=== PATIENT | male | born 1995 | race African-American/Black ===

== ENCOUNTER 2023-05-16 14:02 | Outpatient (CLI) | payer OTHER ==
--- NOTE | 2023-05-16 14:50 | Sleep Patient Instructions ---
Sleep Center Visit Summary - Patient Visit Information Reason for Visit: Initial consult for evaluation of sleep disordered breathing and other sleep issues. - Patient Instructions Instructions Attached: Sleep Study Home Monitor, Sleep Study Additional Instructions: You will be completing a sleep study, either an in-lab polysomnography (PSG) or home sleep study (HST). You will follow-up in the sleep care office after the sleep study is completed to hear the results and talk about therapy, if needed. You will be called by our office staff to schedule this appointment, but you may contact us with any questions. - Clinic Information Contact: [facility] [address] [place] [id number] [email or web address] T: [phone]
--- NOTE | 2023-05-16 14:52 | SLEEP CARE CONSULTATION ---
Information from patient questionnaire entered by Doc Archuleta. I have reviewed and concur with the information entered by Doc Archuleta. This document represents the service I personally performed and the decisions made by me, Elle Mcgill ARNP. History of Present Illness Service Date and Time: 05/16/2023 1402 Reason for Visit: New patient Chief Complaint: reports: Insomnia, Unrefreshed sleep, Snoring, Excessive daytime sleepiness, Frequent awakenings at night Date of Onset: 2YRS Usual bedtime: IT CHANGES Time it takes to fall asleep: 2-3HRS Snores at night: Yes Observed to quit breathing while asleep: Yes Number of times waking at night: 1-2 Reasons for waking at night: reports: Gasping for air (usually when falling asleep on couch when it happens), Pain, Bathroom, Other (UNKNOWN, BREATHING thru mouth at night). denies: Choking Toss, Turn, or Twitch while sleeping: Yes Recalls having dreams: Yes Usually gets out of bed at: varies with work schedule Feels refreshed in the morning: No Morning headache: Yes (1-2 times a week, resolves quickly but sometimes lasts longer; hx migraines) Sleepy or fatigued during the day: Yes Ever fallen asleep while driving: Yes (drowsy driving, no accidents but close calls) Takes day naps: Yes (unintentional usually, sometimes at work) Dreams during day naps: Yes Prior sleep studies: No Additional HPI information: I had the pleasure of seeing DANDRE FISHMAN today regarding the possibility of him having a sleep disorder. His current complaints are insomnia, excessive daytime sleepiness, frequent night awakenings, snoring and unrefreshed sleep. He has been told by his that he is snoring constantly at night and she cannot get sleep. He is falling asleep at work. He has a lot of bloody noses, at least one every other day. He has had the nose cauterized and it helped for about a year or so. But it is returning. He has high blood pressure too. He states that every two weeks his schedule at work changes. His sleep and wake time is variable. He tries to get 8 hours but is not always successful in getting that much sleep. He states he normally can take hours to fall asleep. - Parasomnia Symptoms Ever been unable to move upon waking from sleep: Yes (not often) Walks in sleep: No Talks in sleep: No Ever acted out dreams in sleep: No Ever felt weak in the knees when startled or emotional: Yes Bothered by creepy, crawly, restless sensations in legs: No Problems with memory or concentration: Yes (concentration mostly) Subjective Initial [place] Sleepiness Scale score: 21 (05/16/23) Past Medical History Past Medical History: reports: Hypertension, Other (anger managment counseling) Social History The patient's occupation is a AM. Patient is and lives in . Have you smoked in the past 12 months: Yes (vaping) Years of smokin Alcohol use: No Caffeine use: Yes Caffeine amount and frequency: rare occasion Family History Family history of sleep disordered breathing: Yes Family Hx Sleep Apnea: Mother: Snoring, Father: Snoring, Sleep apnea - Treated, Grandparent: Snoring, Sleep apnea - Treated Allergies and Home Medications Known drug allergies: No Drug allergies reviewed: Yes Home medication list reviewed: Yes Allergy and home medication list: Home Medications Medication Instructions Recorded Confirmed Last Taken Type Acetaminophen [Tylenol] See Rx Instructions .ROUTE .COMPLEX 05/16/23 05/16/23 Unknown History Lisinopril [Zestril] See Rx Instructions .ROUTE .COMPLEX 05/16/23 05/16/23 Unknown History Review of Systems Weight gain over past 5 years: 30 Cardiovascular: reports: high blood pressure Gastrointestinal: reports: heartburn (occasional, uses Tums) Neurological: reports: headaches Psychiatric: denies: anxiety, depression Ear/Nose/Throat: reports: nasal congestion, sinus problems, nose bleeds, dry mouth/throat. denies: tonsillectomy Musculoskeletal: reports: neck pain, back pain Immunologic: denies: allergies to food or environment Physical Exam Vital signs obtained and entered by: DOC Zuniga MA Blood Pressure: 140/90 (LEFT ARM) Cuff size: long Heart Rate: 88 O2 Saturation: 98 Height: 5 ft 11 in Weight: 251 lb 9.6 oz Body Mass Index: 35.1 BMI Classification: Obese Neck circumference: 17.75 Mouth and throat: narrow oropharynx Soft palate: long Hard palate: arched Uvula: normal Uvula visualization: 0% Mallampati Class IV Tongue: enlarged in size with teeth dinh on lateral edges Tonsils: 3+/kissing Neck: normal w/o lymphadenopathy or thyromegaly Heart: regular rate and rhythm Lungs: clear bilaterally Impression and Plan 1. Suspected Obstructive Sleep Apnea-Hypopnea Syndrome, as suggested by a history of loud and irregular snoring, observed cessation of breath while asleep, gasping or choking in sleep, morning headache, frequent awakening during the night, unrefreshed sleep, cognitive impairment, and excessive daytime sleepiness. Narrow oropharynx and obesity are common predisposing factors for obstructive sleep apnea-hypopnea syndrome. I recommend proceeding to polysomnography to confirm the diagnosis and to assess severity. If the patient has significant sleep disordered breathing, a manual CPAP titration study will also be performed to find the optimal treatment pressure. I informed the patient of what the sleep studies involve and after some discussion, obtained agreement to proceed. The pathophysiology of obstructive sleep apnea-hypopnea syndrome was discussed with the patient and health risks of cardiovascular and cerebrovascular disease if not treated. Risks of drowsy driving discussed in detail and patient advised to avoid long distance driving and to wire puller at the first sign of drowsiness. Patient agreed to plan. * Schedule polysomnography. * Avoid long distance driving or driving when feeling sleepy. * Avoid alcohol, sedative and muscle relaxant around bedtime. * Attempt to lose weight. * Review instructions provided by trained office staff on how to prepare for the sleep study. * Return for follow-up after sleep study completed. Counseling Topics: Weight loss health impact Plan: PSG/HST Visit Type: In Office Time Spent with Patient (minutes): 30 Provider Statement: I spent 100% of the Face to Face Visit with the patient with greater than 50% spent counseling the patient and coordination of care.
[2023-05-16 14:53] VITALS: BP 140/90; O2SAT 98
== END 2023-05-16 14:03 | disposition home or self-care (01) ==
LOC: SC 14:02
PROVIDERS: ATTEND Nurse Practitioner Family
DX: R06.83 Snoring (principal); G47.8 Other sleep disorders; R06.81 Apnea, not elsewhere classified; R51.9 Headache, unspecified; G47.10 Hypersomnia, unspecified; R53.83 Other fatigue; I10 Essential (primary) hypertension; E66.9 Obesity, unspecified; Z68.35 Body mass index [BMI] 35.0-35.9, adult; F17.290 Nicotine dependence, other tobacco product, uncomplicated
CPT/HCPCS: 99203; 99212

== ENCOUNTER 2023-06-07 12:16 | Outpatient (CLI) | payer OTHER | END 2023-06-07 12:17 | disposition home or self-care (01) | LOC: SC 12:16 | PROVIDERS: ATTEND Nurse Practitioner Family | DX: G47.33 Obstructive sleep apnea (adult) (pediatric) (principal); R09.02 Hypoxemia; R00.0 Tachycardia, unspecified | CPT/HCPCS: 95806 ==

== ENCOUNTER 2023-07-05 11:07 | Outpatient (CLI) | payer OTHER ==
--- NOTE | 2023-07-05 11:42 | Sleep Patient Instructions ---
Sleep Center Visit Summary - Patient Visit Information Reason for Visit: Sleep study follow up - Patient Instructions Instructions Attached: CPAP Additional Instructions: You are being started on CPAP therapy with pressure setting at 4-15 cmH2O. You w ill need to call the sleep care office to set up your follow up once you have your APAP machine and we will schedule a visit to check compliance and response to therapy at that time. You may call the office with any concerns about pressure feeling too low or too much for adjustment, if needed. You should contact DME supplier for any questions or concerns about mask or equipment. Please call office to schedule a follow up appointment in the sleep care office one month after obtaining new device. - Clinic Information Contact: [facility] [address] [place] [address] [email or web address] T: [phone]
--- NOTE | 2023-07-05 11:45 | SLEEP CARE CONSULTATION ---
Information from patient questionnaire entered by Mattie Archuleta. I have reviewed and concur with the information entered by Mattie Archuleta. This document represents the service I personally performed and the decisions made by me, Elle Mcgill ARNP. History of Present Illness Service Date and Time: 07/05/2023 110 Initial [place] Sleepiness Scale score: 21 (05/16/23) Current [place] Sleepiness Scale score: 22 (07/05/23) Additional HPI information: DANDRE FISHMAN returns for follow up and results of the recently performed home sleep study. The sleep study showed mild obstructive sleep apnea with an average AHI of 6.9 and srinivas oxygen saturation of 80%. I explained the pathophysiology behind obstructive sleep apnea. We then spent quite a bit of time discussing different treatment options. For mild obstructive sleep apnea, surgery and oral appliance are alternatives to nasal CPAP therapy but in moderate or severe cases, nasal CPAP is the most effective and reliable treatment. I reviewed the impact of weight changes on sleep apnea and strongly recommended losing weight. After some discussion, the patient opted to go with the nasal CPAP therapy. Nasal autoCPAP set at 4-15 cmH20 will be ordered with rationale explained. A manual titration study will be ordered if unable to find optimal pressure with office adjustments. I explained how CPAP machine works and what to expect when using the machine. Using CPAP every night in order to get used to it was emphasized. Patient advised to put CPAP mask on before getting into bed so as not to fall asleep without CPAP. To assist acclimation to CPAP use, it could also be used for a short time during day while reading or watching TV. The patient was instructed to call the CPAP supplier to discuss any mechanical problem that may occur. If the mask given is uncomfortable or is difficult to keep on through the night even with adjustment, contact the CPAP supplier as many will replace with another mask style if notified before 30 days. If snoring or perceives is not getting enough air or too much air from the machine, notify this office. Patient does not drink alcohol. Patient was cautioned about risks of drowsy driving until sleepiness symptoms resolve. Sleep Study - Results Type of Sleep Study: Home sleep study (COMPLETED 06/07/23) Prior sleep studies: No Polysomnography/Home Sleep Study results: Physician Impression: The quality of the study is good. The length of the study is adequate (> 240 minutes). Please also see the tabulated and graphic data. 1. Obstructive Sleep Apnea-Hypopnea (ICD-10 G47.33), mild, with an AHI of 6.9/hr and srinivas SaO2 of 80%. During the study, the patient had 9 apneas (9 obstructive, 0 central, 0 mixed) and 40 hypopneas. The longest episode lasted 92.5 seconds. The respiratory events occurred independently of sleep stage and body position (supine AHI was 7.2 and non-supine, 6.28). 2. Hypoxemia (ICD-10 R09.02), mild, with the lowest oxygen saturation of 80 % and 7.4 minutes with SaO2 under 90%. Baseline oxygen saturation was normal (Average oxygen saturation was 94%). 3. Tachycardia, with maximum recorded heart rate of 127 beats per minute. Allergies and Home Medications Known drug allergies: No Drug allergies reviewed: Yes Home medication list reviewed: Yes (no changes) Allergy and home medication list: Allergies No Known Drug Allergies Allergy (Verified 07/04/23 09:59) Review of Systems Review of systems same as previous: Yes (NO CHANGE) Physical Exam Vital signs obtained and entered by: MATTIE Zungia MA Blood Pressure: 165/111 (RIGHT ARM) Cuff size: long Heart Rate: 80 O2 Saturation: 97 Height: 5 ft 11 in Weight: 249 lb 12.8 oz Body Mass Index: 34.8 BMI Classification: Obese Impression and Plan 1. Obstructive Sleep Apnea-Hypopnea Syndrome, mild, with lowest oxygen saturation of 80%. Obviously this is the cause of the patients symptoms of unrefreshed sleep, and excessive daytime sleepiness. Positive pressure therapy could benefit hypertension. As mentioned above, the patient will be started on nasal autoCPAP therapy with pressure set at 4-15 cmH2O. Compliance guidelines also reviewed. A copy of compliance guidelines will be given for reference at check out. 2. Hypoxemia, mild, with a srinivas oxygen saturation of 80% and 7.4 minutes spent under 90%. The baseline oxygen saturation was normal with an average oxygen saturation of 94%. 3. Obesity, unspecified. Currently patients BMI is 34.8. Obesity increases the risk of apnea, CPAP pressure requirements and overall health risks especially cardiovascular and diabetes. Thus patient is advised to lose weight. * Nasal auto CPAP therapy, pressure at 4-15 cm H2O. * Attempt to lose weight. * Avoid alcohol consumption near bedtime. * Avoid supine sleep until using CPAP. * The patient is again cautioned about driving until sleepiness completely resolves. * Return one month after CPAP obtained. I will assess response to therapy and compliance at that time. Counseling Topics: Weight loss health impact Prescriptions: Auto CPAP Plan: Compliance visit Visit Type: In Office Time Spent with Patient (minutes): 20 Provider Statement: I spent 100% of the Face to Face Visit with the patient with greater than 50% spent counseling the patient and coordination of care.
[2023-07-05 11:54] VITALS: BP 165/111; O2SAT 97
== END 2023-07-05 11:08 | disposition home or self-care (01) ==
LOC: SC 11:07
PROVIDERS: ATTEND Nurse Practitioner Family
DX: G47.33 Obstructive sleep apnea (adult) (pediatric) (principal); R09.02 Hypoxemia; E66.9 Obesity, unspecified; Z68.34 Body mass index [BMI] 34.0-34.9, adult
CPT/HCPCS: 99212; 99213

== ENCOUNTER 2023-09-20 08:51 | Outpatient (CLI) | payer OTHER ==
--- NOTE | 2023-09-20 09:26 | Sleep Patient Instructions ---
Sleep Center Visit Summary - Patient Visit Information Reason for Visit: First compliance follow-up - Patient Instructions Additional Instructions: You were here for follow up of CPAP therapy. You will be continued on CPAP therapy with pressure at 9-12 cmH2O. Please let us know if the pressure change is uncomfortable and we can make further adjustments of the pressure. You should follow up with sleep care in 1-2 months. You may contact us sooner for any questions or concerns. - Clinic Information Contact: [facility] [address] [place] [address] [email or web address] T: [phone]
--- NOTE | 2023-09-20 09:35 | SLEEP CARE CONSULTATION ---
Information from patient questionnaire entered by Mattie Archuleta. I have reviewed and concur with the information entered by Mattie Archuleta. This document represents the service I personally performed and the decisions made by me, Elle Mcgill ARNP. History of Present Illness Service Date and Time: 09/20/2023 0851 Previous diagnosis: Mild, Obstructive Sleep Apnea-Hypopnea Syndrome AHI: 6.9 (06/07/23) Reason for follow up: first compliance Equipment type: CPAP (RESMED Airsense 10, s/u 06/2023) Equipment obtained from: Other ([facility]; getting supplies) Mask style: Nasal Mask brand: [employer] ([employer]iryam) Backup mask available: Yes (has full face mask he got initially) Last cushion change: just got nasal mask Prior sleep studies: No Type of Sleep Study: Home sleep study (COMPLETED 06/07/23) HPI additional information: DANDRE FISHMAN was diagnosed to have mild, AHI 6.9, obstructive sleep apnea- hypopnea syndrome and returned today for CPAP therapy first compliance follow- up. Sleep Study - Results Type of Sleep Study: Home sleep study (COMPLETED 06/07/23) Prior sleep studies: No CPAP Compliance Data - Data Reviewed with Patient Average duration of nightly device use: 5 HRS 26 MINS Compliance rate %: 70 (08/05/23-09/03/23; 25/ days used; last 30 days 77%) Current pressure setting (cmH2O): 4-15 (median 9.2, avg 12.5, max 13.4) Average residual AHI: 0.6 Central apnea: 0.4 Obstructive apnea: 0.1 Hypopnea: 0 Average large leak: 2 L/min Subjective Missed days of use due to: reports: travel Patient concerns: reports: mask leak noise, nasal congestion (when takes off mask in morning), dry mouth, nose, throat (dry mouth), other (headache, in morning). denies: aerophagia, mask discomfort, air blowing in eyes, condensation in mask/hose, epistaxis Observed to snore while using device: No Current pressure setting perceived as: comfortable On therapy, patient: reports: sleeping better, awakening more refreshed, being more awake and alert during the day, more rested overall. denies: drowsiness while driving Initial [place] Sleepiness Scale score: 21 (05/16/23) Current [place] Sleepiness Scale score: 8 (09/20/23) Allergies and Home Medications Known drug allergies: No Drug allergies reviewed: Yes Home medication list reviewed: Yes (high blood pressure medication) Allergy and home medication list: Allergies No Known Drug Allergies Allergy (Verified 09/18/23 10:53) Review of Systems Review of systems same as previous: Yes (NO CHANGE) Physical Exam Vital signs obtained and entered by: MATTIE Zuniga MA Blood Pressure: 168/102 (LEFT ARM) Cuff size: regular Heart Rate: 79 O2 Saturation: 97 Height: 5 ft 11 in Weight: 253 lb 9.6 oz Body Mass Index: 35.4 BMI Classification: Obese Impression and Plan 1. Obstructive Sleep Apnea-Hypopnea Syndrome, mild, with good treatment compliance and good apnea control. On CPAP therapy, the patient has better sleep quality and is more rested overall. He has significant improvement of his sleep apnea and feels the pressure is comfortable. The patients pressure will be ch anged to autoCPAP 9-12 cmH20 to reflect pressure being used. Patient advised to contact me if pressure change is uncomfortable so that it can be adjusted. Goals for apnea control discussed. He does complain of some nasal congestion and oral dryness. We will increase his humidity by one increment to see if this will help resolve the dryness. I also discussed with him using a nasal moisturizer as needed to reduce nasal congestion. Patient's apnea severity and rationale for treatment to reduce apnea, improve sleep quality and reduce cardiovascular and cerebrovascular events was reviewed. I also reviewed the benefit of consistent device use of CPAP for hypertension. 2. Obesity, unspecified. Currently patients BMI is 35.4. Obesity increases the risk of apnea, CPAP pressure requirements and overall health risks especially cardiovascular and diabetes. Thus patient is advised to lose weight. 3. Elevated blood pressure reading in patient with hypertension. His blood pressure was elevated today at 168/102. He says he was started on blood pressure medications but has not had a followup with his primary provider. I advised him to make a follow up appointment as they may need to adjust his dosages/medication. He had no complaints of chest pain, shortness of breath, headaches or dizziness. He voiced understanding of instructions. * Change auto CPAP pressure to 9-12 cmH2O * Follow up with PCP for elevated blood pressure * Notify me if snoring with mask or feeling that the pressure is too much or too little * Attempt to lose weight * Call this office if any problems using CPAP * Return for follow up in 1-2 months, or sooner if concerns arise Adjust device pressure to (cmH2O): 9-12 Counseling Topics: Spare mask, Weight loss health impact Follow up with Sleep Care in: 1-2 months Follow up with: PCP Follow up recommended for: High blood pressure Visit Type: In Office Time Spent with Patient (minutes): 24 Provider Statement: I spent 100% of the Face to Face Visit with the patient with greater than 50% spent counseling the patient and coordination of care.
[2023-09-20 09:37] VITALS: BP 168/102; O2SAT 97
== END 2023-09-20 08:52 | disposition home or self-care (01) ==
LOC: SC 08:51
PROVIDERS: ATTEND Nurse Practitioner Family
DX: G47.33 Obstructive sleep apnea (adult) (pediatric) (principal); E66.9 Obesity, unspecified; Z68.35 Body mass index [BMI] 35.0-35.9, adult
CPT/HCPCS: 99212; 99213

== ENCOUNTER 2024-02-15 11:23 | Outpatient (CLI) | payer OTHER ==
--- NOTE | 2024-02-15 11:50 | Sleep Patient Instructions ---
Sleep Center Visit Summary - Patient Visit Information Reason for Visit: 5-month follow-up - Patient Instructions Additional Instructions: You were here for follow up of CPAP therapy. You will be continued on CPAP therapy with pressure at 9-11 cmH2O. Please let us know if the pressure change is uncomfortable and we can make further adjustments of the pressure. You should follow up with sleep care in 6 months. You may contact us sooner for any questions or concerns. - Clinic Information Contact: [facility] [address] [place] [id number] [email or web address] T: [phone]
--- NOTE | 2024-02-15 11:54 | SLEEP CARE CONSULTATION ---
Information from patient questionnaire entered by Doc Archuleta. I have reviewed and concur with the information entered by Doc Archuleta. This document represents the service I personally performed and the decisions made by , Elle Mcgill ARNP. History of Present Illness Service Date and Time: 02/15/2024 112 Previous diagnosis: Mild, Obstructive Sleep Apnea-Hypopnea Syndrome AHI: 6.9 (06/07/23) Reason for follow up: other (5 MONTH F/U) Equipment type: CPAP (RESMED Airsense 10, s/u 06/2023) Equipment obtained from: Other ([facility]; getting supplies) Mask style: Nasal Backup mask available: Yes Last cushion change: couple days ago Prior sleep studies: No Type of Sleep Study: Home sleep study (COMPLETED 06/07/23) HPI additional information: DANDRE FISHMAN was diagnosed to have mild, AHI 6.9, obstructive sleep apnea- hypopnea syndrome and returned today for CPAP therapy five month follow-up. Sleep Study - Results Type of Sleep Study: Home sleep study (COMPLETED 06/07/23) Prior sleep studies: No CPAP Compliance Data - Data Reviewed with Patient Average duration of nightly device use: 5 HRS 42 MINS Compliance rate %: 74 (09/16/23-02/12/24; 126/150 days used) Current pressure setting (cmH2O): 9-12 (avg 11.8, max 12) Average residual AHI: 0.5 Central apnea: 0.3 Obstructive apnea: 0.1 Hypopnea: 0.1 Average large leak: 2.1 L/min Subjective Missed days of use due to: reports: travel Patient concerns: reports: dry mouth, nose, throat (dry mouth), other (HEADACHE). denies: aerophagia, mask discomfort, air blowing in eyes, mask leak noise, condensation in mask/hose, nasal congestion, epistaxis Observed to snore while using device: No Current pressure setting perceived as: comfortable On therapy, patient: reports: sleeping better, awakening more refreshed, being more awake and alert during the day, more rested overall. denies: drowsiness while driving Initial [place] Sleepiness Scale score: 21 (05/16/23) Current [place] Sleepiness Scale score: 15 (02/15/24) Allergies and Home Medications Known drug allergies: No Drug allergies reviewed: Yes Home medication list reviewed: Yes (no changes) Allergy and home medication list: Allergies No Known Drug Allergies Allergy (Verified 02/15/24 11:29) Review of Systems Review of systems same as previous: Yes (NO CHANGE) Physical Exam Vital signs obtained and entered by: DOC Zuniga MA Blood Pressure: 149/100 (LEFT ARM) Cuff size: long Heart Rate: 87 O2 Saturation: 96 Height: 5 ft 11 in Weight: 249 lb Body Mass Index: 34.7 BMI Classification: Obese Impression and Plan 1. Obstructive Sleep Apnea-Hypopnea Syndrome, mild, with good treatment compliance and good apnea control. On CPAP therapy, the patient has better sleep quality and is more rested overall. Patient states he has noticed an increase in headaches that are sharp in quality when he uses his CPAP. He says he is trying to stay hydrated. He says it does not happen on days he does not use his CPAP but does not happen on every night that he uses his CPAP. His residual AHI is at 0.5. To reduce headaches if caused by CPAP, the CPAP pressure will be reduced to 9-11 cmH2O. Patient advised to contact me if this does not reduce symptoms or if pressure change uncomfortable. He says he is also getting a dry mouth and sometimes he may be opening his mouth but other times he knows he has not. I explained to him about how to adjust his humidity setting and increase it by 1 to help reduce oral dryness. He voiced understanding. Patient's apnea severity and rationale for treatment to reduce apnea, improve sleep quality and reduce cardiovascular and cerebrovascular events was reviewed. I also reviewed the benefit of consistent device use of CPAP for hypertension. 2. Obesity, unspecified. Currently patients BMI is 34.7. Obesity increases the risk of apnea, CPAP pressure requirements and overall health risks especially cardiovascular and diabetes. Thus patient is advised to lose weight. * Change auto CPAP pressure to 9-11 cmH2O * Notify me if snoring with mask or feeling that the pressure is too much or too little * Attempt to lose weight * Call this office if any problems using CPAP * Return for follow up in 6 months, or sooner if concerns arise Adjust device pressure to (cmH2O): 9-11 Counseling Topics: Weight loss health impact Follow up with Sleep Care in: 6 months Visit Type: In Office Time Spent with Patient (minutes): 21 Provider Statement: I spent 100% of the Face to Face Visit with the patient with greater than 50% spent counseling the patient and coordination of care.
[2024-02-15 12:36] VITALS: BP 149/100; O2SAT 96
== END 2024-02-15 11:24 | disposition home or self-care (01) ==
LOC: SC 11:23
PROVIDERS: ATTEND Nurse Practitioner Family
DX: G47.33 Obstructive sleep apnea (adult) (pediatric) (principal); E66.9 Obesity, unspecified; Z68.34 Body mass index [BMI] 34.0-34.9, adult
CPT/HCPCS: 99212; 99213